=== PATIENT | male | born 1955 | race Caucasian/White ===

== ENCOUNTER 2020-12-27 07:11 | Observation (INO) ==
--- NOTE | 2020-11-23 13:57 | PAT Medication Instructions ---
Medication Instructions Date of Service November 23, 2020 Home Medications aspirin [Aspir-81] 81 mg PO QAM cholecalciferol (vitamin D3) [Vitamin D3] 25 mcg PO QAM cyanocobalamin (vitamin B-12) 500 mcg PO QAM ibuprofen 400 mg PO Q6H PRN metformin 500 mg PO PM metoprolol succinate 50 mg PO QAM multivitamin 1 tab PO QAM omega 1-utm-fda-fish oil [Fish Oil] 1 cap PO QAM rosuvastatin 40 mg PO QAM sacubitril-valsartan [Entresto] 1 tab PO BID umeclidinium-vilanterol [Anoro Ellipta] 1 inh INHALATION QAM ASK your surgeon for instructions ibuprofen 400 mg PO Q6H PRN STOP taking 2 weeks before surgery omega 7-zft-cfv-fish oil [Fish Oil] 1 cap PO QAM DO NOT take the morning of surgery cholecalciferol (vitamin D3) [Vitamin D3] 25 mcg PO QAM cyanocobalamin (vitamin B-12) 500 mcg PO QAM multivitamin 1 tab PO QAM sacubitril-valsartan [Entresto] 1 tab PO BID (unless blood pressure is elevat ed/bring with you to hospital on day of surgery) Take morning of surgery With a small sip of water, OTHERWISE NOTHING TO EAT OR DRINK AFTER MIDNIGHT: aspirin [Aspir-81] 81 mg PO QAM metoprolol succinate 50 mg PO QAM rosuvastatin 40 mg PO QAM umeclidinium-vilanterol [Anoro Ellipta] 1 inh INHALATION QAM Take evening before surgery metformin 500 mg PO PM sacubitril-valsartan [Entresto] 1 tab PO BID Other Notes If you have any questions please call us at [phone] or [phone] or [phone] or [phone]
--- NOTE | 2020-11-27 13:10 | Anesthesiology Consultation ---
Date of Service November 27, 2020 Assessment & Plan (1) Encounter for pre-operative examination: COVID Status: As of 11/27 assessment, patient denies travel to endemic area, known exposure/sick contacts, or symptoms of COVID19. Patient instructed that they and their household members must follow strict social distancing guidelines, wear a mask in public and avoid travel/events/gatherings for 14 days prior to surgery. Preoperative COVID19 testing to be completed prior to surgery per surgeon's arrangements (12/22). Patient made aware to self-isolate as much as possible between COVID testing and surgery. Pt is NOT vaccinated. Cardiology clearance 11/06/2020: "There are no cardiac contraindications to patient proceeding with surgical procedure for his shoulder injury. He can achieve greater than 4 METS workload without angina and is not in overt heart f ailure. He would be at intermediate risk for perioperative cardiac complications. I do not feel he requires any preoperative cardiac testing. He should be continued on his beta-vincent in the perioperative period." BSG AM DOS Chart Review Chart Review: Acceptable Risk for Surgery and Patient seen in Pre Admission Testing Teaching & Discussion Instructed NPO after midnight before surgery, except medications with 15 cc of water. Medication instructions provided according to the PAT guidelines. Pt is on Entresto. Instructed to bring medication with him AM DOS and may take depending on volume status/BP. History Surgery Operation Date: 12/27/20 11:25 Proposed Procedures p Right Shoulder Arthroscopic Rotator Cuff Repair, Possible Rotator Cuff Repair with Regeneten Biological Implant, Possible Subacromial Decompression and Possible Distal Clavicle Excision - Alvino Ferrer MD Height/Weight Height: 5 ft 6 in Weight: 103.6 kg Allergies Allergy/AdvReac Type Severity Reaction Status Date / Time No Known Allergies Allergy Verified 11/23/20 12:03 Medications Home Medications Medication Instructions Recorded Confirmed Last Taken aspirin [Aspir-81] 81 mg PO QAM 11/23/20 11/23/20 Unknown cholecalciferol (vitamin D3) 25 mcg PO QAM 11/23/20 11/23/20 Unknown [Vitamin D3] cyanocobalamin (vitamin B-12) 500 mcg PO QAM 11/23/20 11/23/20 Unknown ibuprofen 400 mg PO Q6H PRN 11/23/20 11/23/20 Unknown metformin 500 mg PO PM 11/23/20 11/23/20 Unknown metoprolol succinate 50 mg PO QAM 11/23/20 11/23/20 Unknown multivitamin 1 tab PO QAM 11/23/20 11/23/20 Unknown omega 3-wse-drm-fish oil [Fish Oil] 1 cap PO QAM 11/23/20 11/23/20 Unknown rosuvastatin 40 mg PO QAM 11/23/20 11/23/20 Unknown sacubitril-valsartan [Entresto] 1 tab PO BID 11/23/20 11/23/20 Unknown umeclidinium-vilanterol [Anoro 1 inh INHALATION QAM 11/23/20 11/23/20 Unknown Ellipta] Past Medical History Medical History (Updated 11/28/20 @ 11:58 by Evens Shields) Aortic stenosis Moderate per 12/27/19 echo. EBONY 1.3cm2, MG 17.9. CAD (coronary artery disease) 06/25/2017 DIRK x 1 to Dx; 05/29/2018 DIRK x 2 to RCA CHF (congestive heart failure) follows with Dr. Villafana at [facility]. Euvolemic on exam at [facility]. Chronic obstructive pulmonary disease well controlled per pt Diabetes mellitus, type 2 NIDDM History of cardiomyopathy EF originally 35 to 40% but recovered to greater than 55%. Hyperlipidemia Hypertension Myocardial Infarction Per pt. H/o [place] not explicitly mentioned in cardio notes, but does have h/o CM. Sleep apnea CPAP, pt reports full compliance Exercise / Class Metabolic Activity II 4-5 Yardwork/Stairs/Walk up hill (+SOB with walking up a hill, can do 10 s tairs without INGRAM, denies any chest pain) Past Family History Family History Other Family history unknown Past Surgical History Surgical History (Updated 11/28/20 @ 11:51 by Evens Shields) History of cardiac cath 2017 > DIRK x1 to Dx > [facility] 2018 > DIRK x 2 to RCA > [facility] History of carpal tunnel release bilat History of heart artery stent 2 caths, 3 stents total History of tooth extraction Past Anesthesia History No Hx of Anesthesia Complications and No Family Hx of Anesthesia Complications History of PONV No Hx of PONV and No Hx of Motion Sickness Social History Smoking Status: Current every day smoker tobacco type: cigarettes Smoking cigarettes per day: 2 ppd Do You Dip or Chew Tobacco: No Hx Alcohol Use: No Hx Substance Use: No substance use type: does not use Review of Systems Pt denies any recent chest pain, shortness of breath, palpitations, cough, fever, URI, or uncontrolled acid reflux. Physical Exam Vital Signs BP: 166/71 P: 70bpm SPO2: 94% RA T: 98.0 F R: 18 Constitutional + obese ENMT Mouth: + poor dentition (only 5 bottom teeth) and + macroglossia; no dentures, no chipped teeth and no loose teeth Thyromental Distance: > or= 3.5 Finger Breadths Mallampati Class: III Respiratory normal respiratory effort, lungs clear to auscultation + prolonged expiratory phase Auscultation: + diminished lung sounds Cardiovascular Rate/Rhythm: regular rate and regular rhythm Heart Sounds: + murmur (II/ systolic cresc/decresc loudest at RSB) Extremities: no edema Gastrointestinal (Abdomen) Significant abdominal obesity. Testing Laboratory Results 11/27/20 13:18 11/27/20 13:18 Electrocardiogram Date: 11/27/20 Findings: + NSR @ (76bpm) Septal infarct, age undetermined. *unconfirmed Inferior infarct also noted on EKG from 11/05/2018 received from [facility]. Chest X-Ray Date: 11/27/20 FINDINGS: Cardiac silhouette is enlarged. Mild bilateral reticular interstitial opacities. No pneumothorax, pleural effusion or lobar airspace consolidation. Mild hyperinflation with diaphragmatic flattening. Degenerative changes of the shoulders and spine. IMPRESSION: 1. Hyperinflation with interstitial coarsening, possibly on a chronic basis. 2. Cardiomegaly. Echocardiogram Date: 12/27/19 EF: 60-65% The distal anterior and lateral wall and apex are moderately hypokinetic. Remaining segments are normal. The LV is grossly normal in size. Moderate concentric LVH. The right ventricle is grossly normal in size. RV systolic function is normal. Aortic valve leaflets are moderately calcified. The aortic valve is thickened with restricted mobility. Leaflet number is inconclusive. Moderate valvular aortic stenosis. EBONY 1.3-1.4 cm with mean gradient 17.9 mmHg. Trace aortic regurgitation. There is no pericardial effusion. Stress Test Date: 10/26/18 Type: exercise (EKG only) The patient did not experience any chest pain with exercise. There is no electrocardiographic evidence of ischemia. Average cardiovascular fitness. Rhythm: Sinus with multiple PVCs and PACs. Conduction: Normal.
--- NOTE | 2020-11-27 13:45 | XRay Report ---
XR chest Pre-admission PA/Lat HISTORY: 65 years-old Male pat chronic degenerative joint disease COMPARISON: None TECHNIQUE: PA and lateral views of the chest FINDINGS: Cardiac silhouette is enlarged. Mild bilateral reticular interstitial opacities. No pneumothorax, ple ural effusion or lobar airspace consolidation. Mild hyperinflation with diaphragmatic flattening. Deg enerative changes of the shoulders and spine. IMPRESSION: 1. Hyperinflation with interstitial coarsening, possibly on a chronic basis. 2. Cardiomegaly. ACT 112: Negative or not required by law. The above report was generated using voice recognition software. It may contain grammatical, syntax o r spelling errors. Electronically signed by: Delbert Lal M.D. 11/27/2020 1:44 PM
[2020-11-27 15:01] LABS: Basophils # (auto) 0.01 K/uL (0-0.2); Basophils % (auto) 0.1 %; Eosinophils % (auto) 1.2 %; Hematocrit (blood only) 48.9 % (42-52); Hemoglobin 16.9 g/dL (14.0-18.0); Immature Granulocytes # (auto) 0.01 K/uL (0.00-0.02); Immature Granulocytes % (auto) 0.1 %; Lymphocytes # (auto) 1.44 K/uL (1.2-3.4); Lymphocytes % (auto) 17.3 %; Mean Corpuscular Hemoglobin 32.5 pg (25-34); Mean Corpuscular Hgb Conc 34.6 g/dL (32-36); Mean Platelet Volume 10.2 fL (7.4-10.4); Monocytes # (auto) 0.66 K/uL (0.11-0.59); Neutrophils # (auto) 6.08 K/uL (1.4-6.5); Neutrophils % (auto) 73.3 %; Platelet Count 189 K/uL (130-400); RDW Coefficient of Variation 13.3 % (11.5-14.5); RDW Standard Deviation 45.5 fL (36.4-46.3)
[2020-11-27 15:09] LABS: BUN Creatinine Ratio 18.9 (10-20); Calcium 9.5 mg/dl (8.5-10.1); Est GFR (Non-African American) 89.7; Potassium 4.3 mmol/L (3.5-5.1)
--- NOTE | 2020-11-28 23:05 | Electrocardiogram Report ---
Test Reason : Blood Pressure : / mmHG Vent. Rate : 076 BPM Atrial Rate : 076 BPM P-R Int : 204 ms QRS Dur : 102 ms QT Int : 392 ms P-R-T Axes : 066 031 054 degrees QTc Int : 441 ms Normal sinus rhythm Septal infarct , age undetermined Nonspecific T wave abnormality Abnormal ECG No previous ECGs available Confirmed by Perez Hi ([id number]) on 11/28/2020 11:04:46 PM Referred By: Alvino Ferrer Confirmed By:Perez Hi
--- NOTE | 2020-12-25 20:51 | History & Physical Report ---
Date of Service December 25, 2020 Assessment & Plan (1) Full thickness rotator cuff tear: Treatment options discussed with the patient. He has a large full thickness rotator cuff tear. We possibly will not be able to do a complete repair due to the size of the tear. He would like to proceed with surgical intervention. Risks, benefits and alternatives to surgery including but not limited to infection, DVT, pain, stiffness, need for revision surgery, damage to blood vessels, damage to nerves, PE, , were discussed with the patient and they wish to proceed. Plan for right shoulder arthroscopy with rotator cuff repair, possible rotator cuff repair with Regeneten biologic implant, possible subacromial decompression, possible distal clavicle excision. Surgery scheduled for 12/27/20 at [facility] with Dr. Ferrer. All questions answered. Rotator cuff tear trauma status: unspecified whether traumatic Laterality: right Qualified Code(s): M75.121 - Complete rotator cuff tear or rupture of right shoulder, not specified as traumatic History of Present Illness Chief Complaint: Right shoulder pain Primary Care Provider: Phil Dawson MD 65 year old male with PMHx significant for high cholesterol, DM2, CAD, CHF, COPD, HTN, aortic stenosis who presents with ongoing right shoulder pain s/p fall in August. He has a likely acute on chronic full thickness rotator cuff tear and would like to proceed with surgical intervention. Pain and dysfunction interfering with his ability to carry out normal work activities and activities of daily living. Patient denies headaches, sweats, fevers, chills, double vision, blurred vision, cough, sore throat, dysphagia, chest pain, sob, wheezing, n/v/d/c, numbness, tingling, fatigue, urinary symptoms, mood disorders. ROS positive for right shoulder pain and stiffness. Allergies Allergy/AdvReac Type Severity Reaction Status Date / Time No Known Allergies Allergy Verified 11/23/20 12:03 Home Medications Medication Instructions Recorded Confirmed Type aspirin [Aspir-81] 81 mg PO QAM 11/23/20 11/23/20 History cholecalciferol (vitamin D3) 25 mcg PO QAM 11/23/20 11/23/20 History [Vitamin D3] cyanocobalamin (vitamin B-12) 500 mcg PO QAM 11/23/20 11/23/20 History ibuprofen 400 mg PO Q6H PRN 11/23/20 11/23/20 History metformin 500 mg PO PM 11/23/20 11/23/20 History metoprolol succinate 50 mg PO QAM 11/23/20 11/23/20 History multivitamin 1 tab PO QAM 11/23/20 11/23/20 History omega 6-rio-odt-fish oil [Fish Oil] 1 cap PO QAM 11/23/20 11/23/20 History rosuvastatin 40 mg PO QAM 11/23/20 11/23/20 History sacubitril-valsartan [Entresto] 1 tab PO BID 11/23/20 11/23/20 History umeclidinium-vilanterol [Anoro 1 inh INHALATION QAM 11/23/20 11/23/20 History Ellipta] Past Med/Surg History Medical History (Updated 12/25/20 @ 20:44 by Sander Mix) Aortic stenosis Moderate per 12/27/19 echo. EBONY 1.3cm2, MG 17.9. CAD (coronary artery disease) 06/25/2017 DIRK x 1 to Dx; 05/29/2018 DIRK x 2 to RCA CHF (congestive heart failure) follows with Dr. Villafana at [facility]. Euvolemic on exam at [facility]. Chronic obstructive pulmonary disease well controlled per pt Diabetes mellitus, type 2 NIDDM History of cardiomyopathy EF originally 35 to 40% but recovered to greater than 55%. Hyperlipidemia Hypertension Myocardial Infarction Per pt. H/o CT not explicitly mentioned in cardio notes, but does have h/o CM. Sleep apnea CPAP, pt reports full compliance Surgical History (Updated 11/28/20 @ 11:51 by Evens Shields) History of cardiac cath 2017 > DIRK x1 to Dx > [facility] 2018 > DIRK x 2 to RCA > [facility] History of carpal tunnel release bilat History of heart artery stent 2 caths, 3 stents total History of tooth extraction Family History Other Family history unknown Social History Smoking Status: Current every day smoker Cigarettes Per Day: 2 ppd; Second Hand Exposure: Yes (dad smoked); Hx Alcohol Use: No Hx Substance Use: No Preferred Language: [place] Communication Ability: Effective Quality Control Microbiologist Required: No Beliefs That Will Affect Care: None Current Living Situation: Spouse Feels Safe at Home: Yes Assistive Devices: Glasses Review of Systems All systems reviewed & are unremarkable except as noted in HPI & below Physical Exam Constitutional: well developed and well nourished; no acute distress Eyes: PERRL, conjunctivae normal, anicteric sclerae ENMT: external ear and nose normal, oropharynx normal Neck: trachea midline, no thyromegaly Respiratory: normal respiratory effort, lungs clear to auscultation Cardiovascular: Rate/Rhythm: regular rate and regular rhythm Heart Sounds: + murmur (2/6 systolic murmur) Musculoskeletal: Right shoulder: Active painful ROM. Positive impingement signs. Tenderness anterior lateral and anterior inferior acromion. ROM FF to 30 degrees actively, abduction to 90 degrees actively, 70 degrees. Strength ER 3/5, IR 5/5, abduction 3+/5 Skin: no rashes, warm and dry Neurologic: patellar DTR's 2+ bilat, sensation intact Psychiatric: A+Ox3, euthymic affect Results & Data ([facility]) Laboratory Results Lab Results 11/27/20 11/27/20 Range/Units 13:18 13:18 WBC 8.30 (4.8-10.8) K/uL RBC 5.20 (4.7-6.1) M/uL Hgb 16.9 (14.0-18.0) g/dL Hct 48.9 (42-52) % MCV 94.0 (80-100) fL MCH 32.5 (25-34) pg MCHC 34.6 (32-36) g/dL RDW Std Deviation 45.5 (36.4-46.3) fL RDW Coeff of Rula 13.3 (11.5-14.5) % Plt Count 189 (130-400) K/uL MPV 10.2 (7.4-10.4) fL Immature Gran % (Auto) 0.1 % Neut % (Auto) 73.3 % Lymph % (Auto) 17.3 % [place] % (Auto) 8.0 % Eos % (Auto) 1.2 % Baso % (Auto) 0.1 % Neut # (Auto) 6.08 (1.4-6.5) K/uL Lymph # (Auto) 1.44 (1.2-3.4) K/uL [place] # (Auto) 0.66 H (0.11-0.59) K/uL Eos # (Auto) 0.10 (0-0.5) K/uL Baso # (Auto) 0.01 (0-0.2) K/uL Immature Gran # (Auto) 0.01 (0.00-0.02) K/uL Sodium 139 (136-145) mmol/L Potassium 4.3 (3.5-5.1) mmol/L Chloride 106 (98-107) mmol/L Carbon Dioxide 29 (21-32) mmol/L Anion Gap 4.0 (3-11) BUN 16 (7-18) mg/dl Creatinine 0.86 (0.6-1.4) mg/dl Est Cr Clr Drug Dosing 94.0 ml/min Est GFR ( Amer) 104.0 Est GFR (Non-Af Amer) 89.7 BUN/Creatinine Ratio 18.9 (10-20) Glucose 128 H (70-99) mg/dl Calcium 9.5 (8.5-10.1) mg/dl Diagnostic Findings X-rays of his right shoulder demonstrate no fracture or dislocation. He has proximal migration of the humerus on external rotation view with a narrowed acromiohumeral interval consistent with rotator cuff tear. He has some moderate hypertrophy AC joint osteoarthritis. He has a type II acromion with a small keel shape. This could present with impingement. Maintained glenohumeral joint on axillary view. Four-view right shoulder. Right shoulder MRI: Full thickness tear infraspinatus and supraspinatus with retraction, upper border subscapularis tear. Infraspinatus tear appears to be more acute, AC joint osteoarthritis
--- NOTE | 2020-12-25 20:53 | History & Physical Report ---
Date of Service December 25, 2020 Assessment & Plan (1) Full thickness rotator cuff tear: Treatment options discussed with the patient. He has a large full thickness rotator cuff tear. We possibly will not be able to do a complete repair due to the size of the tear. He would like to proceed with surgical intervention. Risks, benefits and alternatives to surgery including but not limited to infection, DVT, pain, stiffness, need for revision surgery, damage to blood vessels, damage to nerves, PE, , were discussed with the patient and they wish to proceed. Plan for right shoulder arthroscopy with rotator cuff repair, possible rotator cuff repair with Regeneten biologic implant, possible subacromial decompression, possible distal clavicle excision. Surgery scheduled for 12/27/20 at [facility] with Dr. Ferrer. All questions answered. Rotator cuff tear trauma status: unspecified whether traumatic Laterality: right Qualified Code(s): M75.121 - Complete rotator cuff tear or rupture of right shoulder, not specified as traumatic History of Present Illness Chief Complaint: Right shoulder pain Primary Care Provider: Phil Dawson MD 65 year old male with PMHx significant for high cholesterol, DM2, CAD, CHF, COPD, HTN, aortic stenosis who presents with ongoing right shoulder pain s/p fall in August. He has a likely acute on chronic full thickness rotator cuff tear and would like to proceed with surgical intervention. Pain and dysfunction interfering with his ability to carry out normal work activities and activities of daily living. Patient denies headaches, sweats, fevers, chills, double vision, blurred vision, cough, sore throat, dysphagia, chest pain, sob, wheezing, n/v/d/c, numbness, tingling, fatigue, urinary symptoms, mood disorders. ROS positive for right shoulder pain and stiffness. Allergies Allergy/AdvReac Type Severity Reaction Status Date / Time No Known Allergies Allergy Verified 11/23/20 12:03 Home Medications Medication Instructions Recorded Confirmed Type aspirin [Aspir-81] 81 mg PO QAM 11/23/20 11/23/20 History cholecalciferol (vitamin D3) 25 mcg PO QAM 11/23/20 11/23/20 History [Vitamin D3] cyanocobalamin (vitamin B-12) 500 mcg PO QAM 11/23/20 11/23/20 History ibuprofen 400 mg PO Q6H PRN 11/23/20 11/23/20 History metformin 500 mg PO PM 11/23/20 11/23/20 History metoprolol succinate 50 mg PO QAM 11/23/20 11/23/20 History multivitamin 1 tab PO QAM 11/23/20 11/23/20 History omega 7-nyh-cru-fish oil [Fish Oil] 1 cap PO QAM 11/23/20 11/23/20 History rosuvastatin 40 mg PO QAM 11/23/20 11/23/20 History sacubitril-valsartan [Entresto] 1 tab PO BID 11/23/20 11/23/20 History umeclidinium-vilanterol [Anoro 1 inh INHALATION QAM 11/23/20 11/23/20 History Ellipta] Past Med/Surg History Medical History (Updated 12/25/20 @ 20:44 by Sander Mix) Aortic stenosis Moderate per 12/27/19 echo. EBONY 1.3cm2, MG 17.9. CAD (coronary artery disease) 06/25/2017 DIRK x 1 to Dx; 05/29/2018 DIRK x 2 to RCA CHF (congestive heart failure) follows with Dr. Villafana at [facility]. Euvolemic on exam at [facility]. Chronic obstructive pulmonary disease well controlled per pt Diabetes mellitus, type 2 NIDDM History of cardiomyopathy EF originally 35 to 40% but recovered to greater than 55%. Hyperlipidemia Hypertension Myocardial Infarction Per pt. H/o [place] not explicitly mentioned in cardio notes, but does have h/o CM. Sleep apnea CPAP, pt reports full compliance Surgical History (Updated 11/28/20 @ 11:51 by Evens Shields) History of cardiac cath 2017 > DIRK x1 to Dx > [facility] 2018 > DIRK x 2 to RCA > [facility] History of carpal tunnel release bilat History of heart artery stent 2 caths, 3 stents total History of tooth extraction Family History Other Family history unknown Social History Smoking Status: Current every day smoker Cigarettes Per Day: 2 ppd; Second Hand Exposure: Yes (dad smoked); Hx Alcohol Use: No Hx Substance Use: No Preferred Language: Azerbaijani Communication Ability: Effective Psychologist Required: No Beliefs That Will Affect Care: None Current Living Situation: Spouse Feels Safe at Home: Yes Assistive Devices: Glasses Physical Exam Constitutional: well developed and well nourished; no acute distress Eyes: PERRL, conjunctivae normal, anicteric sclerae ENMT: external ear and nose normal, oropharynx normal Neck: trachea midline, no thyromegaly Respiratory: normal respiratory effort, lungs clear to auscultation Cardiovascular: Rate/Rhythm: regular rate and regular rhythm Heart Sounds: + murmur (2/6 systolic murmur) Musculoskeletal: Right shoulder: Active painful ROM. Positive impingement signs. Tenderness anterior lateral and anterior inferior acromion. ROM FF to 30 degrees actively, abduction to 90 degrees actively, 70 degrees. Strength ER 3/5, IR 5/5, abduction 3+/5 Skin: no rashes, warm and dry Neurologic: patellar DTR's 2+ bilat, sensation intact Psychiatric: A+Ox3, euthymic affect Results & Data ([facility]) Laboratory Results Lab Results 11/27/20 11/27/20 Range/Units 13:18 13:18 WBC 8.30 (4.8-10.8) K/uL RBC 5.20 (4.7-6.1) M/uL Hgb 16.9 (14.0-18.0) g/dL Hct 48.9 (42-52) % MCV 94.0 (80-100) fL MCH 32.5 (25-34) pg MCHC 34.6 (32-36) g/dL RDW Std Deviation 45.5 (36.4-46.3) fL RDW Coeff of Rula 13.3 (11.5-14.5) % Plt Count 189 (130-400) K/uL MPV 10.2 (7.4-10.4) fL Immature Gran % (Auto) 0.1 % Neut % (Auto) 73.3 % Lymph % (Auto) 17.3 % [place] % (Auto) 8.0 % Eos % (Auto) 1.2 % Baso % (Auto) 0.1 % Neut # (Auto) 6.08 (1.4-6.5) K/uL Lymph # (Auto) 1.44 (1.2-3.4) K/uL [place] # (Auto) 0.66 H (0.11-0.59) K/uL Eos # (Auto) 0.10 (0-0.5) K/uL Baso # (Auto) 0.01 (0-0.2) K/uL Immature Gran # (Auto) 0.01 (0.00-0.02) K/uL Sodium 139 (136-145) mmol/L Potassium 4.3 (3.5-5.1) mmol/L Chloride 106 (98-107) mmol/L Carbon Dioxide 29 (21-32) mmol/L Anion Gap 4.0 (3-11) BUN 16 (7-18) mg/dl Creatinine 0.86 (0.6-1.4) mg/dl Est Cr Clr Drug Dosing 94.0 ml/min Est GFR ( Amer) 104.0 Est GFR (Non-Af Amer) 89.7 BUN/Creatinine Ratio 18.9 (10-20) Glucose 128 H (70-99) mg/dl Calcium 9.5 (8.5-10.1) mg/dl Diagnostic Findings X-rays of his right shoulder demonstrate no fracture or dislocation. He has proximal migration of the humerus on external rotation view with a narrowed acromiohumeral interval consistent with rotator cuff tear. He has some moderate hypertrophy AC joint osteoarthritis. He has a type II acromion with a small keel shape. This could present with impingement. Maintained glenohumeral joint on axillary view. Four-view right shoulder. Right shoulder MRI: Full thickness tear infraspinatus and supraspinatus with retraction, upper border subscapularis tear. Infraspinatus tear appears to be more acute, AC joint osteoarthritis
[~2020-12-27 07:11] MED LIST: BUPIVACAINE 0.5 % 5 MG/1 ML PF 10ML VIAL ONE; LR 15ML/HR IV SCH; ceFAZolin 2000MG 2,000 MG/15 ML SYR IV SCH
[2020-12-27] MEDS ORDERED: fentaNYL citrate 100 MCG/2 ML VIAL ONE (08:42)
[2020-12-27] MEDS ORDERED: MIDAZOLAM HCL 1 MG/ML 2ML VIAL ONE (08:42)
[2020-12-27] MEDS ORDERED: ePHEDrine sulfate 50 MG/ML AMP IV PRN (08:44)
[2020-12-27] MEDS ORDERED: fentaNYL citrate 100 MCG/2 ML VIAL IV PRN (08:44)
[2020-12-27] MEDS ORDERED: ONDANSETRON INJ 2 MG/ML 2 ML VIAL IV PRN ×2 (08:44→14:03)
[2020-12-27] MEDS ORDERED: ATROPINE SULFATE 0.1 MG/ML 10ML SYR IV PRN (08:44)
--- NOTE | 2020-12-27 08:54 | History & Physical Bridge Note ---
Date of Service December 27, 2020 History & Physical Bridge Note I have examined the patient, reviewed the History & Physical and in the interval since the performance of the History & Physical I have noted the following changes of clinical significance: no changes noted
[2020-12-27] MEDS ORDERED: BUPIVACAINE 0.25% 30 ML VIAL ONE (09:02)
[2020-12-27] MEDS ORDERED: EPINEPHrine HCL INJ 1 MG/ML 30ML ONE (09:03)
[2020-12-27] MEDS ORDERED: KETAMINE 50 MG/5 ML SYRINGE ONE (09:43)
[2020-12-27] MEDS ORDERED: ACETAMINOPHEN 1000 MG/100 ML IV IV ONE (09:46)
[2020-12-27] MEDS ORDERED: PROPOFOL IV EMULSION 10 MG/ML 20 ML VIAL IV ONE (10:02)
[2020-12-27] MEDS ORDERED: ONDANSETRON INJ 2 MG/ML 2 ML VIAL ONE (10:02)
[2020-12-27] MEDS ORDERED: ePHEDrine sulfate 50 MG/ML AMP ONE (10:02)
--- NOTE | 2020-12-27 12:15 | Post Operative Brief Note ---
Immediate Post Op Note v1 Date of Surgery December 27, 2020 Pre & Post Diagnosis Operation Date: 12/27/20 09:20 Pre-Op Diagnosis: Right Shoulder massive rotator Cuff Tear, Impingement, acromioclavicular joint osteoarthritis Post-Op Diagnosis: Right Shoulder massive rotator Cuff Tear, Impingement, acromioclavicular joint osteoarthritis, glenoid labral tear, glenohumeral DJD, chronic subacromial bursitis. I identified the patient and participated in the time-out.: Yes Procedure Operation Date: 12/27/20 09:20 Actual Procedures p Right Shoulder Arthroscopic Rotator Cuff Repair, Subacromial Decompression and Distal Clavicle Excision, Debridement of glenoid labral tear and glenohumeral joint, rotator cuff and subacromial bursa (Right) - Alvino Ferrer MD Surgeon Alvino Ferrer MD Research Chemist Liam BRUSH Estimated Blood Loss 5 Findings Consistent with Post-Op Diagnosis Anesthesia Type General Regional Complications none Disposition Accompanied Patient To Recovery: No Disposition: Recovery Room Overlapping Procedure I was immediately available: during the entire case.
--- NOTE | 2020-12-27 12:42 | Operative Report ---
Post Operative Report Pre & Post Diagnosis Operation Date: 12/27/20 09:20 Pre-Op Diagnosis: Right Shoulder acute on chronic posttraumatic massive rotator cuff tear with subacromial impingement AC joint osteoarthritis Post-Op Diagnosis: Right Shoulder acute on chronic posttraumatic massive rotator cuff tear with rotator cuff tendinopathy with subacromial impingement AC joint osteoarthritis and glenohumeral joint osteoarthritis and glenoid labral tear and chronic suba cromial bursitis. I identified the patient and participated in the time-out.: Yes Procedure Operation Date: 12/27/20 09:20 Actual Procedures p Right Shoulder Arthroscopic Rotator Cuff Repair, Subacromial Decompression and Distal Clavicle Excision, Debridement of glenoid labral tear and glenohumeral joint and subacromial bursa and rotator cuff tendinopathy.(Right) - Alvino Ferrer MD Surgeon Alvino Ferrer MD Iuss Master Analyst Liam BRUSH Estimated Blood Loss 5 Findings Consistent with Post-Op Diagnosis Specimens None Anesthesia Type General Regional Complications none Disposition Accompanied Patient To Recovery: No Disposition: Recovery Room Indications 65-year-old male with multiple medical problems including diabetes mellitus CHF COPD CAD had a traumatic injury to his shoulder and radiographs demonstrate type II acromion with hypertrophic AC joint osteoarthritis subacromial impingement and MRI demonstrates massive rotator cuff tear with retraction but acute findings of edema consistent with acute tear of the infraspinatus and some findings consistent with more of a chronic tear of the supraspinatus. Has some muscle atrophy of the supraspinatus. Active forward elevation was 85 degrees on exam today. Patient had better passive range of motion and functional deltoid overhead. Description of Procedure The patient was to the operating room anesthetized under regional block and general anesthesia. The patient was positioned on the operating table in the 70 beach chair position. All of the other extremities were well-padded. The right upper extremity was prepped and draped in the usual sterile fashion. Examination demonstrated 160 degrees forward elevation external rotation to 80 degrees and rotation 90 degrees. Arthroscopy of the shoulder was performed via anterior and posterior arthroscopy portals. Posterior portal was placed in the soft spot and the anterior portal was placed in the rotator interval. Subsequent portals included small skin incision adjacent to lateral portal for traction sutures and a superior lateral incision for suture anchor placement. The following findings were noted: In the lateral joint there was some grade III chondromalacia of the anterior-inferior glenoid and there was a displaced flap of anterior superior labral tissue at the 2 o'clock position and some synovitis around the superior labrum. Biceps tendon was intact. The subscapularis tendon had tendinopathy with striations in the tissue and degenerative changes. Supraspinatus was torn and retracted almost to the level of the glenoid. The infraspinatus was completely torn and retracted almost as far as the supraspinatus. Teres minor was still intact. There was thickened subacromial bursitis overlying the cuff tear and extending posteriorly posteriorly around the shoulder. There is type II acromion process some fraying the CA ligament hypertrophy of the AC joint grade 4 AC joint osteoarthritis with low-lying distal clavicle contribute to impingement.. Attention was first taken to debriding the anterosuperior labral tear back to stable margin and intact tissue. The peelback sign was noted to be negative after debridement. The anterior-inferior glenoid articular surface was lightly debrided. The subscapularis tendon was debrided back to intact stable fibers. An anterior superior capsular release was performed to help mobilize the supraspinatus for repair. A thorough subacromial bursectomy was performed moving all the thickened scarred bursa overlying the rotator cuff tear so we could fully visualize rotator cuff tear pattern and identify the ends of the rotator cuff tissue. 2 Arthrex mini tape sutures were placed in luggage tag technique into the infraspinatus and supraspinatus to help control the tear. Traction was placed on the rotator cuff and the bursal side adhesions were all released so we could fully mobilize the rotator cuff. I did perform a posterior interval slide between the infraspinatus and teres minor to help mobilize infraspinatus further on the greater tuberosity. There was too much tension on the rotator cuff to repair it anatomically at the lateral tuberosity so I debrided the footprint of this supraspinatus and infraspinatus and medialized the articular surface adjacent to the footprint 4 mm to get a medialized repair. Another mini tape was placed between the teres minor and the infraspinatus. A triple loaded 5.5 mm [employer] Helicoil suture anchor was placed into the infraspinatus tendon footprint. The bone was soft so had the seat the anchor deeper to get stability. We were able to get stability of the anchor. The sutures were passed in simple fashion using an [employer]it[employer] suture passer through the infraspinatus tendon tissue 2 of the 3 sutures were passed around the cytocide tape as a ripstop technique. The sutures were tied with A Walls sliding locking knot with 3 reversed half hitches and alternating posts. 2 more 5.5 mm [employer] triple loaded anchors were placed 1 at the junction between the supraspinatus and infraspinatus and one of the anterior supra spinatus area. Sutures were passed and tied in similar fashion. The [id number] mini tape was sutured advancing the teres minor up to meet the infraspinatus gaining more posterior coverage. The luggage tag mini tapes were placed into a 5.5 footprint peek anchor laterally. The repair was secure with mild tension at the side. A complete front to back repair was obtained. The bursa and periosteum on the undersurface of the acromion was ablated with the radiofrequency ablator and the CA ligament was released off the anterior acromion. The CA ligament was debrided back. A 5.5 bur was used to plane down the acromion to type I flat shape. A radio frequency ablator was used to ablate the undersurface of 1 cm of the distal clavicle ablating the inferior capsule. This exposed the spurs on the undersurface of the clavicle. A 5.5 bur was used to resect 1 cm distal clavicle using the sonya through both the lateral and anterior portal. The superior and posterior capsule was preserved for stability. The portal sites were closed with interrupted nylon sutures. Sterile dressings were applied and a pillow sling immobilizer. The patient tolerated the procedure well. My physician city carrier assistant Liam BRUSH, assisted in arm positioning, instrument management, suture management when indicated, incision closure, sling application, and will participate in the postoperative care of the patient. I attest to the content of the Intraoperative Record and any orders documented therein. Any exceptions are noted below.
[2020-12-27] MEDS ORDERED: bisacodyL 10 MG SUPP PR PRN (14:03)
[2020-12-27] MEDS ORDERED: NALOXONE HCL 0.4 MG/1 ML VIAL/CARP IV PRN (14:03)
[2020-12-27] MEDS ORDERED: SODIUM CHLORIDE 0.9% 1000ML 1,000 ML IV SCH (14:03)
[2020-12-27] MEDS ORDERED: MAGNESIUM HYDROXIDE SUSP 30 ML UDC PO PRN (14:03)
[2020-12-27] MEDS ORDERED: METOCLOPRAMIDE HCL INJ 5 MG/ML 2 ML VIAL IV PRN (14:03)
[2020-12-27] MEDS ORDERED: TAMSULOSIN HCL 0.4 MG CAP PO PRN (14:03)
[2020-12-27] MEDS ORDERED: PHARMACY GLYCEMIC MGMT CONSULT PRN (14:16)
--- NOTE | 2020-12-27 14:25 | Pharmacy Report ---
Pharmacy Glycemic Short Note 2 - Date of Service December 27, 2020 - Glycemic Short BSG Results (Last 24 hours): 12/27/20 12/27/20 07:48 12:28 POC Glucose 149 H 127 H OUTPATIENT ANTIDIABETIC REGIMEN: * Metformin 500mg PO Q PM * A1c = ? ASSESSMENT: * Type 2 diabetic admitted for R rotator cuff repair * Level of glycemic control with metformin monotherapy uncertain - will check A1c. BSGs since admission have been acceptable however (120-140's) * It appears no steroid was given umer-op * Will initiate Novolog SQ ACHS utilizing "moderate" stress level for CF and CR doses. Will hold basal insulin at this time as fasting BSGs acceptable with no basal on board. PLAN FOR INPATIENT GLYCEMIC CONTROL: * Check A1c with next lab draw * Hold outpatient oral diabetes medications (metformin - may consider resuming tomorrow if tolerating diet and renal fxn adequate) * Basal insulin * None at this time * Bolus insulin * NovoLog per scale ACHS or Q6hrs while NPO * Goal Range: Low 110 mg/dL - High 140 mg/dL * Correction Factor: 25 mg/dL/unit * Nutritional / Prandial insulin per carb ratio of 1 unit per 8 grams CHO consumed PLAN FOR DISCHARGE: * to be determined, will ultimately depend on A1c
[2020-12-27] MEDS ORDERED: GLUCAGON FOR INJ 1 MG VIAL IM PRN (14:30)
[2020-12-27] MEDS ORDERED: DEXTROSE 50% 50 ML SYRINGE IV PRN (14:30)
[2020-12-27] MEDS ORDERED: GLUCOSE 40% GEL 15 GM TUBE PO PRN (14:30)
[2020-12-27] MEDS ORDERED: GLUCOSE 10 TABS/TUBE PO PRN (14:30)
[2020-12-27] MEDS ORDERED: CARBOHYDRATES FOR HYPOGLYCEMIA PO PRN (14:30)
[2020-12-27] MEDS: oxyCODONE HCL IR 5 MG TAB (IMMEDIATE RELEASE) PO PRN ×2 (14:40→20:45)
[2020-12-27] MEDS: ACETAMINOPHEN 500 MG TAB PO SCH ×2 (14:41→22:16)
--- NOTE | 2020-12-27 16:14 | Hospitalist Consultation ---
Date of Consultation December 27, 2020 Assessment & Plan (1) Full thickness rotator cuff tear: Mr. Tubbs is a 65 year old male with a history of CAD s/p AL and Diagonal PCI 06/2017, s/p RCA and R NEELA Stents 05/2018, Resolved Ischemic Cardiomyopathy, Moderate Aortic Stenosis, Type 2 DM, Hypertension, Hypercholesterolemia, COPD, Nicotine Dependence, Sleep Apnea, and Left Carotid Artery Stenosis who is POD#0 s/p Right Shoulder Arthroscopic Rotator Cuff Repair, Subacromial Decompression and Distal Clavicle Excision, Debridement of glenoid labral tear and glenohumeral joint and subacromial bursa and rotator cuff tendinopathy. Patient tolerated this procedure and has not had any complications related to surgery or anesthesia. Patient is currently being seen in room 308. He offers no complaints at this time. His shoulder is sore, but the pain is tolerable and controlled as far as he is concerned. Patient has not had any recent cardiac symptoms. He is hemodynamically stable postoperatively and he is feeling well. -- Analgesics as per ortho for pain control. -- CBC with diff and BMP ordered for tomorrow morning. -- DVT prophylaxis as per ortho. -- Physical therapy as directed by Dr. Ferrer. (2) CAD, multiple vessel: AL 06/25/17 s/p Diagonal DIRK, followed by RCA and R NEELA DIRK's May 2018. Following his AL his LVEF was 35% to 40%. He was placed in the appropriate medical therapy. Subsequent Echocardiogram showed an LVEF > 55%. -- No recent symptoms. -- Continue Metoprolol Succinate ER 50 mg daily. -- Continue Entresto 97-103 mg b.i.d.. -- Continue Aspirin 81 mg daily. -- Continue Crestor 40 mg daily. (3) HTN (hypertension): -- Continue Metoprolol Succinate ER 50 mg daily. -- Continue Entresto 97-103 mg b.i.d.. (4) Hypercholesterolemia: -- Continue Crestor 40 mg daily. -- Resume Azalea 3 Fish Oil capsules daily. (5) Type 2 diabetes mellitus: -- Metformin on hold. -- BSG checks QAC and HS. -- Cover with SSI. (6) COPD (chronic obstructive pulmonary disease): Well controlled per patient. -- Continue Anoro Ellipta 1 inhalation daily. -- Strongly encouraged smoking cessation. (7) Sleep apnea: -- Continue CPAP. Supervising Physician Co-Signing Physician Notes Discussed case with MAYLIN, agree with his note above. Patient presented here for an elective right shoulder arthroscopic rotator cuff repair, performed today. Dr. Ferrer consulted our service for postoperative medical management. Patient is a diabetic, has known multivessel CAD as well as hypertension. Medications were reviewed and should be continued as detailed above. Patient is off his Metformin for his diabetes, should be on sliding scale with a diabetic diet. Continue his COPD medications. Further management including analgesia and DVT prophylaxis should be handled by primary service. Will be available for questions and concerns during the patient's hospitalization. Thank you for the consult. History of Present Illness Reason for Consultation: -- Post-op Medical Management. -- CAD s/p Intracoronary Stents. -- Hypertension. -- COPD. Requesting Physician: Alvino Ferrer MD Attending Physician: Kevin Corrales, History of Present Illness Mr. Tubbs is a 65 year old male with a history of CAD s/p AL and Diagonal PCI 06/2017, s/p RCA and R NEELA Stents 05/2018, Resolved Ischemic Cardiomyopathy, Moderate Aortic Stenosis, Type 2 DM, Hypertension, Hypercholesterolemia, COPD, Nicotine Dependence, Sleep Apnea, and Left Carotid Artery Stenosis who underwent Right Shoulder Arthroscopy earlier today with Dr. Ferrer. Patient tolerated this procedure and has not had any complications related to surgery or anesthesia. Patient is currently being seen in room 308. He offers no complaints at this time. His shoulder is sore, but the pain is tolerable and controlled as far as he is concerned. Patient offers no other complaints. He denies any nausea, vomiting, dizziness, or vertigo. He has not had any recent cardiac issues. He is physically active on a daily basis and has not experienced any limiting cardiopulmonary symptoms. He did a lot of yard work yesterday without difficulty. Patient specifically denies any exertional chest pain, heaviness, tightness, pressure, or discomfort. He denies any exertional neck, jaw, back, or arm pain. He has not had any shortness of breath, unusual dyspnea exertion, or recent exacerbations of heart failure. He further denies any palpitations, syncope, or near syncope. His primary collar setter overlock is Dr. Sander Todd at [facility] in [facility]. His cardiac history dates back to June 2017 when he sustained an acute AL. He underwent Cardiac Catheterization revealing a high-grade diagonal branch stenosis which was stented. He was also noted to have borderline obstructive disease in the right coronary system. Following his AL, his LVEF was down to 35%-40%. Patient was placed on the appropriate medications, and over time his LV systolic function improved. When it was last checked, his LVEF was > 55%. He underwent an abnormal stress test in May 2018 which led to repeat Cardiac Catheterization. He subsequently had his RCA and right NEELA stented. Allergies Allergy/AdvReac Type Severity Reaction Status Date / Time No Known Allergies Allergy Verified 12/27/20 07:50 Home Medications Medication Instructions Recorded Confirmed Type aspirin [Aspir-81] 81 mg PO QAM 11/23/20 12/27/20 History cholecalciferol (vitamin D3) 25 mcg PO QAM 11/23/20 11/23/20 History [Vitamin D3] cyanocobalamin (vitamin B-12) 500 mcg PO QAM 11/23/20 11/23/20 History ibuprofen 400 mg PO Q6H PRN 11/23/20 12/27/20 History metformin 500 mg PO PM 11/23/20 12/27/20 History metoprolol succinate 50 mg PO QAM 11/23/20 12/27/20 History multivitamin 1 tab PO QAM 11/23/20 11/23/20 History omega 8-[id number]-mzk-fish oil [Fish Oil] 1 cap PO QAM 11/23/20 11/23/20 History rosuvastatin 40 mg PO QAM 11/23/20 12/27/20 History sacubitril-valsartan [Entresto] 1 tab PO BID 11/23/20 12/27/20 History umeclidinium-vilanterol [Anoro 1 inh INHALATION QAM 11/23/20 12/27/20 History Ellipta] Patient History Medical History (Updated 12/27/20 @ 16:17 by Dewayne Kumar PA-C) Aortic stenosis Moderate per 12/27/19 echo. EBONY 1.3cm2, MG 17.9. CAD (coronary artery disease) 06/25/2017 DIRK x 1 to Dx; 05/29/2018 DIRK x 2 to RCA CHF (congestive heart failure) follows with Dr. Villafana at [facility]. Euvolemic on exam at [facility]. Chronic obstructive pulmonary disease well controlled per pt Diabetes mellitus, type 2 NIDDM History of cardiomyopathy EF originally 35 to 40% but recovered to greater than 55%. Hyperlipidemia Hypertension Myocardial Infarction Per pt. H/o AL not explicitly mentioned in cardio notes, but does have h/o CM. Sleep apnea CPAP, pt reports full compliance Surgical History History of cardiac cath 2017 > DIRK x1 to Dx > [facility] 2018 > DIRK x 2 to RCA > [facility] History of carpal tunnel release bilat History of heart artery stent 2 caths, 3 stents total History of tooth extraction Family History Other Family history unknown Social History Smoking Status: Current every day smoker Cigarettes Per Day: 2 ppd; Second Hand Exposure: Yes (dad smoked); Do You Dip or Chew Tobacco: No; Tobacco Cessation Education Requested by Patient: No Hx Alcohol Use: No Hx Substance Use: No Preferred Language: Armenian Communication Ability: Effective Internet Database Specialist Required: No Beliefs That Will Affect Care: None marital status: Current Living Situation: Spouse Other Information That Helps Us Care for You: No Feels Safe at Home: Yes Safety Concerns: Feels Safe At This Time Assistive Devices: Glasses Physical Exam Physical Exam: GENERAL: Patient is sitting semi recumbent in his bed, right arm is in a sling. Appears comfortable. HEENT: Head is atraumatic, normocephalic. EOM's intact. Facies symmetric. No perioral cyanosis. NECK: No JVD. JVP is at the level of the clavicle sitting upright. Carotid upstrokes are + 2 bilaterally without obvious bruits. CHEST/LUNGS: Diminished breath sounds throughout, otherwise clear. No wheezes, rales, or crackles. CVS: S1 and S2 are regular with a grade 2/6 crescendo decrescendo basal systolic murmur heard best over the right 2nd intercostal space, radiates to left sternal border. No diastolic murmurs. No gallops or rubs. PMI is nonpalpable. No lifts, heaves, or thrills. No abdominal aortic or renal bruits. ABDOMINAL EXAM: Bowel sounds are present. No masses, organomegaly, or tenderness. EXTREMITIES: No clubbing or cyanosis. No edema. Intact radial pulses bilaterally. NEUROLOGIC EXAM: Patient is awake, alert, and oriented. Pleasant and cooperative. Answers questions appropriately. Speech is clear. Follows commands. Results & Data Results & Data ([facility]) Vital Signs (Past 12 Hours) Vital Signs Temp Pulse Pulse Resp BP BP Pulse Ox 12/27/20 15:53 55 L 16 125/72 97 12/27/20 14:46 36.4 C L 60 16 137/79 96 12/27/20 14:20 36.5 C 61 16 123/74 95 12/27/20 13:30 60 17 133/66 93 12/27/20 13:15 36.4 C L 60 19 134/71 92 12/27/20 13:05 60 20 132/67 93 12/27/20 12:55 59 L 18 138/70 95 12/27/20 12:45 63 16 133/64 96 12/27/20 12:35 63 15 138/65 95 12/27/20 12:27 36.3 C L 64 18 142/62 H 95 12/27/20 07:57 36.8 C 78 18 161/77 H 93 Laboratory Results Laboratory Results - last 24 hr 12/27/20 12/27/20 12/27/20 07:48 12:28 13:15 POC Glucose 149 H 127 H COVID-19 Eval Order Covid19 IDNow [facility] SARS-CoV-2, RNA, NAAT 12/27/20 13:15 POC Glucose COVID-19 Eval Order SARS-CoV-2, RNA, NAAT NEGATIVE Medications Administered Medications aspirin [Aspir-81] 81 mg PO QAM 11/23/20 [History Confirmed 12/27/20] cholecalciferol (vitamin D3) [Vitamin D3] 25 mcg PO QAM 11/23/20 [History Conf irmed 11/23/20] cyanocobalamin (vitamin B-12) 500 mcg PO QAM 11/23/20 [History Confirmed 11/23/20] ibuprofen 400 mg PO Q6H PRN 11/23/20 [History Confirmed 12/27/20] metformin 500 mg PO PM 11/23/20 [History Confirmed 12/27/20] metoprolol succinate 50 mg PO QAM 11/23/20 [History Confirmed 12/27/20] multivitamin 1 tab PO QAM 11/23/20 [History Confirmed 11/23/20] omega 7-kbw-rqk-fish oil [Fish Oil] 1 cap PO QAM 11/23/20 [History Confirmed 11/23/20] rosuvastatin 40 mg PO QAM 11/23/20 [History Confirmed 12/27/20] sacubitril-valsartan [Entresto] 1 tab PO BID 11/23/20 [History Confirmed 12/27/20] umeclidinium-vilanterol [Anoro Ellipta] 1 inh INHALATION QAM 11/23/20 [History Confirmed 12/27/20] Home Medications Acetaminophen (Acetaminophen 500 Mg Tab) 1,000 mg PO Q8 EVLIA Stop: 01/26/21 14:02 Last Admin: 12/27/20 14:41 Dose: 1,000 mg Documented by: Aspirin (Aspirin 81 Mg Ectab) 81 mg PO QAM ELVIA Stop: 01/27/21 08:59 Bisacodyl (Bisacodyl 10 Mg Supp) 10 mg MA DAILY PRN PRN Reason: Constipation Stop: 01/26/21 14:02 Cyanocobalamin (Cyanocobalamin 500 Mcg Tablet (Vitamin B-12)) 500 mcg PO QAM ELVIA Stop: 01/27/21 08:59 Dextrose (Dextrose 50% 50 Ml Syringe) 25 - 50 ml IV UD PRN; Protocol PRN Reason: Hypoglycemia Protocol Stop: 01/26/21 14:29 Docusate Sodium (Docusate Sodium 100 Mg Cap) 100 mg PO BID ELVIA Stop: 01/26/21 20:59 Glucagon (Glucagon For Inj 1 Mg Vial) 1 mg IM UD PRN; Protocol PRN Reason: Hypoglycemia Protocol Stop: 01/26/21 14:29 Glucose (Glucose 40% Gel 15 Gm Tube) 15 - 30 gm PO UD PRN; Protocol PRN Reason: Hypoglycemia Protocol Stop: 01/26/21 14:29 Glucose (Glucose 10 Tabs/Tube) 4 - 8 tabs PO UD PRN; Protocol PRN Reason: Hypoglycemia Protocol Stop: 01/26/21 14:29 Hydromorphone HCl (Hydromorphone Inj 0.5 Mg/0.5 Ml Syr) 0.5 mg IV Q4H PRN PRN Reason: Pain or Pre PT Stop: 01/10/21 14:02 Lactated Ringer's (Lr) 1,000 mls @ 15 mls/hr IV .Q24H [facility] Stop: 12/28/20 05:59 Last Infusion: 12/27/20 09:20 Dose: Infused Documented by: Cefazolin Sodium (Ancef 2000mg) 2,000 mg in 15 mls @ 3.75 mls/min IV PREOP ELVIA; Protocol Stop: 12/27/20 18:00 Last Admin: 12/27/20 09:20 Dose: 3.75 mls/min Documented by: Sodium Chloride (Nss 1000ml) 1,000 mls @ 100 mls/hr IV .Q10H [facility] Stop: 12/28/20 06:00 Last Admin: 12/27/20 14:40 Dose: 100 mls/hr Documented by: Insulin Aspart (Insulin Aspart 100 Units/Ml 3 Ml Pen) 0 units SC ACHS [facility] Stop: 01/26/21 16:29 Magnesium Hydroxide (Magnesium Hydroxide Susp 30 Ml Udc) 30 ml PO Q6H PRN PRN Reason: Constipation Stop: 01/26/21 14:02 Metoclopramide HCl (Metoclopramide Hcl Inj 5 Mg/Ml 2 Ml Vial) 10 mg IV Q6H PRN PRN Reason: Nausea And Vomiting Stop: 01/26/21 14:02 Metoprolol Succinate (Metoprolol Succ 50mg Ext Rel Tab) 50 mg PO [facility] Stop: 01/27/21 08:59 Miscellaneous (Carbohydrates For Hypoglycemia ) 15 - 30 gm PO UD PRN PRN Reason: Hypoglycemia Treatment Stop: 01/26/21 14:29 Miscellaneous Information (Pharmacy Glycemic Mgmt Consult) 1 ea N/A UD PRN PRN Reason: Consult Stop: 01/26/21 14:15 Multivitamins (Multivitamin Tab) 1 tab PO [facility] Stop: 01/27/21 08:59 Naloxone HCl (Naloxone Hcl 0.4 Mg/1 Ml Vial/Carp) 0.1 mg IV Q5M PRN PRN Reason: Oversedation/Resp Depression Stop: 01/26/21 14:02 Ondansetron HCl (Ondansetron Inj 2 Mg/Ml 2 Ml Vial) 4 mg IV Q6H PRN PRN Reason: Nausea And Vomiting Stop: 01/26/21 14:02 Oxycodone HCl (Oxycodone Hcl Ir 5 Mg Tab (Immediate Release)) 5 - 10 mg PO Q4H PRN PRN Reason: Pain or Pre PT Stop: 01/10/21 14:02 Last Admin: 12/27/20 14:40 Dose: 10 mg Documented by: Rosuvastatin Calcium (Rosuvastatin Calcium 20 Mg Tab) 40 mg PO QAM ELVIA Stop: 01/27/21 08:59 Sacubitril/Valsartan (Sacubitril-Valsartan 97-103 Mg Tab) 1 tab PO BID ELVIA Stop: 01/26/21 20:59 Sennosides (Senna 8.6 Mg Tab) 17.2 mg PO HS ELVIA Stop: 01/26/21 20:59 Tamsulosin HCl (Tamsulosin Hcl 0.4 Mg Cap) 0.4 mg PO QAM PRN PRN Reason: UNABLE to void Stop: 01/26/21 14:02 Umeclidinium/Vilanterol (Umeclidinium/Vilanterol 62.5/25mcg 7 Puffs/Inhaler) 1 puffs INH QAM ELVIA Stop: 01/27/21 08:59 Vitamin D (Cholecalciferol 1,000 Units 25 Mcg Tab) 1,000 units PO QAM ELVIA Stop: 01/27/21 08:59 PG Care Time/CCT Total # of Minutes Spent Total Time Spent with Patient: Total time spent is greater than 50% in coordination of care (as documented) at patient's floor/unit and/or counseling patient:40 Coding Level of Care Code 33673 Office/OBS Consult Lvl 4 Diagnoses Full thickness rotator cuff tear M75.121 Laterality: right Rotator cuff tear trauma status: unspecified whether traumatic CAD, multiple vessel I25.10 HTN (hypertension) I10 Hypercholesterolemia E78.00 Type 2 diabetes mellitus E11.9 COPD (chronic obstructive pulmonary disease) J44.9 Sleep apnea G47.30 Time Spent (min) 55 (1) Full thickness rotator cuff tear Laterality: right Rotator cuff tear trauma status: unspecified whether traumatic Qualified Code(s): M75.121 - Complete rotator cuff tear or rupture of right shoulder, not specified as traumatic
--- NOTE | 2020-12-27 16:28 | Anesthesiology Progress Note ---
Date of Service December 27, 2020 Anesthesia Post Procedure Vital Signs Vital Signs: Temp Pulse Pulse Resp BP BP Pulse Ox 12/27/20 15:53 55 L 16 125/72 97 12/27/20 14:46 36.4 C L 60 16 137/79 96 12/27/20 14:20 36.5 C 61 16 123/74 95 12/27/20 13:30 60 17 133/66 93 12/27/20 13:15 36.4 C L 60 19 134/71 92 12/27/20 13:05 60 20 132/67 93 12/27/20 12:55 59 L 18 138/70 95 12/27/20 12:45 63 16 133/64 96 12/27/20 12:35 63 15 138/65 95 12/27/20 12:27 36.3 C L 64 18 142/62 H 95 12/27/20 07:57 36.8 C 78 18 161/77 H 93 Transfer of Care Handoff Completed per policy Notes Mental Status: alert / awake / arousable and participated in evaluation Patient Amnestic to Procedure: Yes Nausea / Vomiting: adequately controlled Pain: adequately controlled Airway Patency, RR, SpO2: stable & adequate BP & HR: stable & adequate Hydration State: stable & adequate Anesthetic Complications: no major complications apparent and Pt Satisfied with anesthetic care
[2020-12-27] MEDS: INSULIN ASPART 100 UNITS/ML 3 ML PEN SC SCH ×2 (18:29→22:47)
[2020-12-27] MEDS ORDERED: SENNA 8.6 MG TAB PO SCH (21:00)
[2020-12-27] MEDS: DOCUSATE SODIUM 100 MG CAP PO SCH (22:16)
[2020-12-27] MEDS: SACUBITRIL-VALSARTAN 97-103 MG TAB PO SCH (22:17)
[2020-12-27] MEDS: HYDROmorphone INJ 0.5 MG/0.5 ML SYR IV PRN (23:44)
[2020-12-28] MEDS: oxyCODONE HCL IR 5 MG TAB (IMMEDIATE RELEASE) PO PRN ×3 (03:27→11:58)
[2020-12-28] MEDS: HYDROmorphone INJ 0.5 MG/0.5 ML SYR IV PRN (05:24)
[2020-12-28] MEDS: ACETAMINOPHEN 500 MG TAB PO SCH (05:24)
[2020-12-28 06:20] LABS: Hematocrit (blood only) 46.6 % (42-52); Hemoglobin 15.4 g/dL (14.0-18.0); Mean Corpuscular Hemoglobin 32.2 pg (25-34); Mean Corpuscular Volume 97.3 fL (80-100); Mean Platelet Volume 10.3 fL (7.4-10.4); Platelet Count 171 K/uL (130-400); RDW Coefficient of Variation 13.5 % (11.5-14.5); RDW Standard Deviation 48.1 fL (36.4-46.3); Red Blood Count 4.79 M/uL (4.7-6.1); White Blood Count 11.82 K/uL (4.8-10.8)
[2020-12-28 06:51] LABS: BUN Creatinine Ratio 24.8 (10-20); Calcium 8.1 mg/dl (8.5-10.1); Creatinine Clr Calc Pharmacy 104.9 ml/min; Est GFR (African American) 109.4 ml/min; Est GFR (Non-African American) 94.4 ml/min; Potassium 4.3 mmol/L (3.5-5.1)
[2020-12-28 07:01] LABS: Estimated Average Glucose 171 mg/dl; Hemoglobin A1C 7.6 % (4.5-5.6)
--- NOTE | 2020-12-28 07:10 | Orthopedic Progress Note ---
Date of Service December 28, 2020 Assessment & Plan (1) Full thickness rotator cuff tear: POD#1 right shoulder arthroscopy with rotator cuff repair. Pain management as written. Will hold PT for 6 weeks. Can do light home exercises as discussed-elbow/wrist/hand motion, shrugs, pendulums. DVT pr ophylaxis-SCDs. Will plan on discharge home today. Admission and Anticipated Discharge Date Admission Date: December 27, 2020 Subjective POD#1 right shoulder rotator cuff repair. Doing okay this morning, some pain but controlled. No other complaints. Denies chest pain, sob, dizziness, headache, fever, chills. Review of Systems Review of Systems: All systems reviewed & are unremarkable except as noted in HPI & below Physical Exam Physical Exam: Right shoulder sling is intact. Dressing is c/d/i. Fingers mobile. Distally n/v status and sensation intact. Constitutional: well developed and well nourished; no acute distress Results & Data ([facility]) Vital Signs (Past 12 Hours) Vital Signs Temp Pulse Resp BP Pulse Ox 12/28/20 03:22 36.9 C 75 20 136/75 91 12/27/20 22:15 36.4 C L 67 16 115/68 94 12/27/20 19:50 36.5 C 59 L 18 112/64 96 (1) Full thickness rotator cuff tear Rotator cuff tear trauma status: unspecified whether traumatic Laterality: right Qualified Code(s): M75.121 - Complete rotator cuff tear or rupture of right shoulder, not specified as traumatic
[2020-12-28] MEDS: SACUBITRIL-VALSARTAN 97-103 MG TAB PO SCH (08:02)
[2020-12-28] MEDS: DOCUSATE SODIUM 100 MG CAP PO SCH (08:02)
[2020-12-28] MEDS ORDERED: CYANOCOBALAMIN 500 MCG TABLET (VITAMIN B-12) PO SCH (09:00)
[2020-12-28] MEDS ORDERED: METOPROLOL SUCC 50MG EXT REL TAB PO SCH (09:00)
[2020-12-28] MEDS ORDERED: ROSUVASTATIN CALCIUM 20 MG TAB PO SCH (09:00)
[2020-12-28] MEDS ORDERED: ASPIRIN 81 MG ECTAB PO SCH (09:00)
[2020-12-28] MEDS ORDERED: UMECLIDINIUM/VILANTEROL 62.5/25MCG 7 PUFFS/INHALER INH SCH (09:00)
[2020-12-28] MEDS ORDERED: MULTIVITAMIN TAB PO SCH ×2 (09:00)
[2020-12-28] MEDS ORDERED: CHOLECALCIFEROL 1,000 UNITS 25 MCG TAB PO SCH (09:00)
[2020-12-28] MEDS: INSULIN ASPART 100 UNITS/ML 3 ML PEN SC SCH (09:28)
[2020-12-28] MEDS ORDERED: metFORMIN HCL 500 MG TAB PO SCH (17:00)
--- NOTE | 2020-12-29 21:34 | Discharge Summary ---
Date of Service December 29, 2020 Admission HPI Per Admitting Provider 65 year old male with PMHx significant for high cholesterol, DM2, CAD, CHF, COPD, HTN, aortic stenosis who presents with ongoing right shoulder pain s/p fall in August. He has a likely acute on chronic full thickness rotator cuff tear and would like to proceed with surgical intervention. Pain and dysfunction interfering with his ability to carry out normal work activities and activities of daily living. Patient denies headaches, sweats, fevers, chills, double vision, blurred vision, cough, sore throat, dysphagia, chest pain, sob, wheezing, n/v/d/c, numbness, tingling, fatigue, urinary symptoms, mood disorders. ROS positive for right shoulder pain and stiffness. Admission Exam Per Admitting Provider Constitutional: well developed and well nourished; no acute distress Eyes: PERRL, conjunctivae normal, anicteric sclerae ENMT: external ear and nose normal, oropharynx normal Neck: trachea midline, no thyromegaly Respiratory: normal respiratory effort, lungs clear to auscultation Cardiovascular: Rate/Rhythm: regular rate and regular rhythm Heart Sounds: + murmur (2/6 systolic murmur) Musculoskeletal: Right shoulder: Active painful ROM. Positive impingement signs. Tenderness anterior lateral and anterior inferior acromion. ROM FF to 30 degrees actively, abduction to 90 degrees actively, 70 degrees. Strength ER 3/5, IR 5/5, abduction 3+/5 Skin: no rashes, warm and dry Neurologic: patellar DTR's 2+ bilat, sensation intact Psychiatric: A+Ox3, euthymic affect Principal Diagnosis Right shoulder rotator cuff tear Discharge Exam Constitutional well developed and well nourished; no acute distress Eyes PERRL, conjunctivae normal, anicteric sclerae ENMT external ear and nose normal, oropharynx normal Neck trachea midline, no thyromegaly Respiratory normal respiratory effort, lungs clear to auscultation Cardiovascular Rate/Rhythm: regular rate and regular rhythm Heart Sounds: + murmur (2/6 systolic murmur) Skin no rashes, warm and dry Neurologic patellar DTR's 2+ bilat, sensation intact Psychiatric A+Ox3, euthymic affect Discharge Data Allergies Allergy/AdvReac Type Severity Reaction Status Date / Time No Known Allergies Allergy Verified 12/27/20 07:50 Consultations 12/27/20 14:03 Consult Hospitalist Routine Procedures Performed Operation Date: 12/27/20 09:20 Actual Procedures p Right Shoulder Arthroscopic Rotator Cuff Repair, Subacromial Decompression and Distal Clavicle Excision, Debridement of glenoid labral tear and glenohumeral joint.(Right) - Alvino Ferrer MD Ordered Studies 12/27/20 05:00 US - OR guided needle placemen Routine Hospital Course (1) Full thickness rotator cuff tear: Patient presented for same day admission following right shoulder arthroscopy on 12/27/20. He tolerated procedure well. The Patient had an uneventf ul hospital course. Post-operatively, his activity was progressed and well tolerated. Labs remained stable. Dr. Kevin Corrales of medical service was consulted for medical management during admission. Pain controlled on oral medications. Please refer to daily progress notes for complete details. After exam on 12/28/20, patient was felt to be stable for discharge home. Patient will f/u in the office in about 2 weeks for further evaluation including incision check, sooner if having any issues or concerns. POD#1 right shoulder arthroscopy with rotator cuff repair. Pain management as written. Will hold PT for 6 weeks. Can do light home exercises as discussed-elbow/wrist/hand motion, shrugs, pendulums. DVT prophylaxis-SCDs. Will plan on discharge home today. Lab Results 11/27/20 11/27/20 12/27/20 Range/Units 13:18 13:18 07:48 WBC 8.30 (4.8-10.8) K/uL RBC 5.20 (4.7-6.1) M/uL Hgb 16.9 (14.0-18.0) g/dL Hct 48.9 (42-52) % MCV 94.0 (80-100) fL MCH 32.5 (25-34) pg MCHC 34.6 (32-36) g/dL RDW Std Deviation 45.5 (36.4-46.3) fL RDW Coeff of Rula 13.3 (11.5-14.5) % Plt Count 189 (130-400) K/uL MPV 10.2 (7.4-10.4) fL Immature Gran % (Auto) 0.1 % Neut % (Auto) 73.3 % Lymph % (Auto) 17.3 % [facility] % (Auto) 8.0 % Eos % (Auto) 1.2 % Baso % (Auto) 0.1 % Neut # (Auto) 6.08 (1.4-6.5) K/uL Lymph # (Auto) 1.44 (1.2-3.4) K/uL [facility] # (Auto) 0.66 H (0.11-0.59) K/uL Eos # (Auto) 0.10 (0-0.5) K/uL Baso # (Auto) 0.01 (0-0.2) K/uL Immature Gran # (Auto) 0.01 (0.00-0.02) K/uL Sodium 139 (136-145) mmol/L Potassium 4.3 (3.5-5.1) mmol/L Chloride 106 (98-107) mmol/L Carbon Dioxide 29 (21-32) mmol/L Anion Gap 4.0 (3-11) BUN 16 (7-18) mg/dl Creatinine 0.86 (0.6-1.4) mg/dl Est Cr Clr Drug Dosing 94.0 ml/min Est GFR ( Amer) 104.0 Est GFR (Non-Af Amer) 89.7 BUN/Creatinine Ratio 18.9 (10-20) Glucose 128 H (70-99) mg/dl POC Glucose 149 H (70-99) mg/dl Estimat Average Glucose mg/dl Hemoglobin A1c (4.5-5.6) % Calcium 9.5 (8.5-10.1) mg/dl COVID-19 Eval Order SARS-CoV-2, RNA, NAAT (NEGATIVE) 12/27/20 12/27/20 12/27/20 Range/Units 12:28 13:15 13:15 WBC (4.8-10.8) K/uL RBC (4.7-6.1) M/uL Hgb (14.0-18.0) g/dL Hct (42-52) % MCV (80-100) fL MCH (25-34) pg MCHC (32-36) g/dL RDW Std Deviation (36.4-46.3) fL RDW Coeff of Rula (11.5-14.5) % Plt Count (130-400) K/uL MPV (7.4-10.4) fL Immature Gran % (Auto) % Neut % (Auto) % Lymph % (Auto) % [facility] % (Auto) % Eos % (Auto) % Baso % (Auto) % Neut # (Auto) (1.4-6.5) K/uL Lymph # (Auto) (1.2-3.4) K/uL [facility] # (Auto) (0.11-0.59) K/uL Eos # (Auto) (0-0.5) K/uL Baso # (Auto) (0-0.2) K/uL Immature Gran # (Auto) (0.00-0.02) K/uL Sodium (136-145) mmol/L Potassium (3.5-5.1) mmol/L Chloride (98-107) mmol/L Carbon Dioxide (21-32) mmol/L Anion Gap (3-11) BUN (7-18) mg/dl Creatinine (0.6-1.4) mg/dl Est Cr Clr Drug Dosing ml/min Est GFR ( Amer) Est GFR (Non-Af Amer) BUN/Creatinine Ratio (10-20) Glucose (70-99) mg/dl POC Glucose 127 H (70-99) mg/dl Estimat Average Glucose mg/dl Hemoglobin A1c (4.5-5.6) % Calcium (8.5-10.1) mg/dl COVID-19 Eval Order [facility] SARS-CoV-2, RNA, NAAT NEGATIVE (NEGATIVE) 12/27/20 12/27/20 12/28/20 Range/Units 17:52 21:08 05:31 WBC 11.82 H (4.8-10.8) K/uL RBC 4.79 (4.7-6.1) M/uL Hgb 15.4 (14.0-18.0) g/dL Hct 46.6 (42-52) % MCV 97.3 (80-100) fL MCH 32.2 (25-34) pg MCHC 33.0 (32-36) g/dL RDW Std Deviation 48.1 H (36.4-46.3) fL RDW Coeff of Rula 13.5 (11.5-14.5) % Plt Count 171 (130-400) K/uL MPV 10.3 (7.4-10.4) fL Immature Gran % (Auto) % Neut % (Auto) % Lymph % (Auto) % [facility] % (Auto) % Eos % (Auto) % Baso % (Auto) % Neut # (Auto) (1.4-6.5) K/uL Lymph # (Auto) (1.2-3.4) K/uL [facility] # (Auto) (0.11-0.59) K/uL Eos # (Auto) (0-0.5) K/uL Baso # (Auto) (0-0.2) K/uL Immature Gran # (Auto) (0.00-0.02) K/uL Sodium (136-145) mmol/L Potassium (3.5-5.1) mmol/L Chloride (98-107) mmol/L Carbon Dioxide (21-32) mmol/L Anion Gap (3-11) BUN (7-18) mg/dl Creatinine (0.6-1.4) mg/dl Est Cr Clr Drug Dosing ml/min Est GFR ( Amer) Est GFR (Non-Af Amer) BUN/Creatinine Ratio (10-20) Glucose (70-99) mg/dl POC Glucose 128 H 121 H (70-99) mg/dl Estimat Average Glucose mg/dl Hemoglobin A1c (4.5-5.6) % Calcium (8.5-10.1) mg/dl COVID-19 Eval Order SARS-CoV-2, RNA, NAAT (NEGATIVE) 12/28/20 12/28/20 12/28/20 Range/Units 05:31 05:31 08:19 WBC (4.8-10.8) K/uL RBC (4.7-6.1) M/uL Hgb (14.0-18.0) g/dL Hct (42-52) % MCV (80-100) fL MCH (25-34) pg MCHC (32-36) g/dL RDW Std Deviation (36.4-46.3) fL RDW Coeff of Rula (11.5-14.5) % Plt Count (130-400) K/uL MPV (7.4-10.4) fL Immature Gran % (Auto) % Neut % (Auto) % Lymph % (Auto) % [facility] % (Auto) % Eos % (Auto) % Baso % (Auto) % Neut # (Auto) (1.4-6.5) K/uL Lymph # (Auto) (1.2-3.4) K/uL [facility] # (Auto) (0.11-0.59) K/uL Eos # (Auto) (0-0.5) K/uL Baso # (Auto) (0-0.2) K/uL Immature Gran # (Auto) (0.00-0.02) K/uL Sodium 137 (136-145) mmol/L Potassium 4.3 (3.5-5.1) mmol/L Chloride 107 (98-107) mmol/L Carbon Dioxide 24 (21-32) mmol/L Anion Gap 6.0 (3-11) BUN 19 H (7-18) mg/dl Creatinine 0.76 (0.6-1.4) mg/dl Est Cr Clr Drug Dosing 104.9 ml/min Est GFR ( Amer) 109.4 Est GFR (Non-Af Amer) 94.4 BUN/Creatinine Ratio 24.8 H (10-20) Glucose 127 H (70-99) mg/dl POC Glucose 131 H (70-99) mg/dl Estimat Average Glucose 171 mg/dl Hemoglobin A1c 7.6 H (4.5-5.6) % Calcium 8.1 L (8.5-10.1) mg/dl COVID-19 Eval Order SARS-CoV-2, RNA, NAAT (NEGATIVE) Total Time Total Time Spent Total Time Spent (In Minutes): 20 Discharge Plan Discharge Items Patient Disposition: Home - Self-Care Reason For Visit: Right Shoulder Rotator Cuff Tear, Impingement Discharge Diagnosis: Right shoulder rotator cuff tear Activity: Per Instructions section Non-emergency contact: Surgeon Call non-emergency contact if: you have any medication questions, your pain is not controlled, your pain is worsening, your pain is concerning for you, you have a fever, your temperature is above 101, your wound has increased redness and your wound has increased drainage Follow-up/Referrals: Phil Dawson MD [Primary Care Provider] - Diet: Regular Addtl Attending Provider Instructions: [facility] DISCHARGE INSTRUCTIONS: ROTATOR CUFF REPAIR SELF CARE INSTRUCTIONS A. You are permitted to loosen your sling/immobilizer to move your elbow, wrist, and hand to prevent stiffness. You should use your well arm (good arm) to assist the operated extremity when trying to raise the arm away from the body, hygiene purposes. Do NOT actively try to use/engage your shoulder muscles in operative arm at this time. You should NOT do overhead activity, lifting, or attempt to reach behind your back. B. We will be holding physical therapy until you are further out from surgery. We will let you know when you are to start. C. At 48 hours post-operatively, you may change your dressing. (Leave white steri-strips intact if present). Use band-aids and change daily. You are allowed to shower at this time and get the incision area wet, but DO NOT soak or submerge incision area in water. (No baths, swimming pools, hot tubs) D. Do NOT apply soap or any ointment/lotions directly over incision. E. You may use ice as needed to operative shoulder SPECIAL CARE INSTRUCTIONS: VERY IMPORTANT TO READ AND REVIEW A. There are a few signs you need to watch for after you are home. Call [facility] at [phone] if you experience any of the following: a. Increased severe shoulder pain. Some pain is expected especially when you exercise b. Increased swelling in your shoulder or arm; pain or swelling in either upper extremity. (Note: swelling and stiffness is normal and expected for several weeks post op, depending on type of shoulder surgery you had). c. Any fluid or drainage from the incision; redness of the incision. d. Shortness of breath or chest pain. B. Please call [facility] at [phone] if you have any questions or concerns about your operation or recovery. C. Call your physician if: a. Temperature is greater than 101 degrees (F). b. Pain is not relieved by prescribed pain medications. c. Increase drainage or redness from incision. d. Unanswered questions or concerns. D. Pain Medication: a. You will be prescribed pain medication upon discharge that should last till your first post-operative appointment. b. If you experience nausea and/or skin rash, discontinue this medication and contact our office for an alternative medication. c. Caution- narcotic pain medication can cause constipation. FOLLOW UP VISIT: Please call [facility] at [phone] to schedule a follow up appointment 10-14 days from your surgery date. Visit Report Forms: Smoking Cessation Stand-Alone Forms: My [facility], Opioid Pain Management, Work/School Release, Smoking Cessation Medications and DC Order Prescriptions: New oxycodone-acetaminophen [Percocet] 5-325 mg tablet 1 - 2 tab PO .Q4h-6h MDD 6 PRN (Reason: pain) Qty: 30 RF: 0 cefadroxil 500 mg capsule 500 mg PO BID Qty: 14 RF: 0 Continued multivitamin Tablet 1 tab PO QAM RF: 0 metformin 500 mg Tablet 500 mg PO PM RF: 0 metoprolol succinate 50 mg Tablet Extended Release 24 Hr 50 mg PO QAM RF: 0 aspirin 81 mg Tablet,Delayed Release (Dr/Ec) 81 mg PO QAM RF: 0 cyanocobalamin (vitamin B-12) 500 mcg Tablet 500 mcg PO QAM RF: 0 rosuvastatin 40 mg Tablet 40 mg PO QAM RF: 0 cholecalciferol (vitamin D3) [Vitamin D3] 25 mcg (1,000 unit) Tablet,Chewable 25 mcg PO QAM RF: 0 omega 1-gbn-geo-fish oil [Fish Oil] 1,000 mg (120 mg-180 mg) Capsule 1 cap PO QAM RF: 0 Anoro Ellipta 62.5-25 mcg/actuation Blister With Device 1 inh INHALATION QAM RF: 0 Entresto 97-103 mg Tablet 1 tab PO BID RF: 0 Discontinued ibuprofen 200 mg Tablet 400 mg PO Q6H PRN (Reason: Pain) RF: 0 Discharge Orders: Discharge Order (Routine); Ordered 12/28/20 Ordered By: Sander Oliver/Other Patient Handouts: High Blood Sugar (Hyperglycemia), Hypoglycemia (Low Blood Sugar), Managing Type 2 Diabetes, A1C Admission Data Admit Date/Time: 12/27/20 12:34 Attending Provider: Alvino Ferrer Admit Provider: Alvino Ferrer Primary Care Provider: Phil Dawson Other Providers: Darrian Hooker Other Interventions: Discharge Summary Assessment (RN) Last Done: 12/28/20 11:22
== END 2020-12-28 12:19 | disposition home or self-care (01) ==
LOC: 3E 07:11 → ASU 07:11
DX: I50.9 Heart failure, unspecified; E66.9 Obesity, unspecified; M75.121 Complete rotator cuff tear or rupture of right shoulder, not specified as traumatic; Z20.822 Contact with and (suspected) exposure to COVID-19; J44.9 Chronic obstructive pulmonary disease, unspecified; F17.210 Nicotine dependence, cigarettes, uncomplicated; G47.30 Sleep apnea, unspecified; Z79.82 Long term (current) use of aspirin; I25.10 Atherosclerotic heart disease of native coronary artery without angina pectoris; Z68.35 Body mass index [BMI] 35.0-35.9, adult; Z79.84 Long term (current) use of oral hypoglycemic drugs; E78.5 Hyperlipidemia, unspecified; I11.0 Hypertensive heart disease with heart failure; Z95.818 Presence of other cardiac implants and grafts; I25.2 Old myocardial infarction; I35.0 Nonrheumatic aortic (valve) stenosis; E11.9 Type 2 diabetes mellitus without complications